=== PATIENT | female | born 2000 | race Two or more races ===

== ENCOUNTER 2023-03-12 18:51 | Emergency (ER) | payer OTHER ==
[~2023-03-12] VITALS: Ht 162.6 cm; Wt 80.4 kg
[2023-03-12 20:44] VITALS: BP 100/49
[2023-03-12] MEDS ORDERED: KETOROLAC TROMETH 30 MG/ML 1ML VIAL IM ONE (21:30)
== END 2023-03-12 21:43 | disposition home or self-care (01) ==
LOC: ER 18:51
DX: S62.633A Displaced fracture of distal phalanx of left middle finger, initial encounter for closed fracture (principal); J45.909 Unspecified asthma, uncomplicated; Y04.2XXA Assault by strike against or bumped into by another person, initial encounter; Y93.89 Activity, other specified; Y92.89 Other specified places as the place of occurrence of the external cause; Y99.8 Other external cause status
CPT/HCPCS: 29130; 73130; 96372; 99283; J1885

== ENCOUNTER → 2023-04-01 | Emergency (ER) | payer OTHER ==
[~2023-04-01] VITALS: Ht 162.6 cm; Wt 77.2 kg
[2023-04-01 12:25] VITALS: BP 104/57
== END | disposition left against medical advice (07) ==
LOC: ER 12:03
DX: M79.645 Pain in left finger(s) (principal); Z53.21 Procedure and treatment not carried out due to patient leaving prior to being seen by health care provider